=== PATIENT | female | born 1980 | race Caucasian/White ===

== ENCOUNTER 2017-08-29 03:49 | Emergency (ER) | payer OTHER ==
--- NOTE | 2017-08-29 04:08 | PDOC ---
History of Present Illness - General Stated Complaint: PAIN History Source: Patient Exam Limitations: No Limitations - History of Present Illness Travel History: No Initial Comments: 08/29/17 04:18 36-year-old female with a history of first renal colic 2 years ago presents to the emergency department complaining of left-sided flank pain 2 hours. Pain is described as 5/10 dull nonradiating intermittent discomfort. Patient denies nausea/vomiting, fever/chills, chest pain, shortness of breath, abdominal pains , urinary symptoms: Frequency/urgency/hesitancy, hematuria. The pain is exacerbated on touch and alleviated minimally with Advil which the patient took 2 hours ago. Patient states pain is similar to her previous renal colic on the left side. Patient denies any other complaints. LMP: presently Timing/Duration: reports: intermittent Past History - Past Medical History Allergies/Adverse Reactions: Allergies Allergy/AdvReac Type Severity Reaction Status Date / Time No Known Drug Allergies Allergy Verified 08/29/17 04:40 Home Medications: Ambulatory Orders Albuterol Sulfate Inhaler - [Ventolin HFA Inhaler -] 1 - 2 inh PO QID 06/23/15 Montelukast Na [Singulair -] 10 mg PO HS 06/23/15 Budesonide/Formeterol Fumarate [SYMBICORT 160/4.5mcg -] 1 inh PO DAILY 08/29/17 Asthma: Yes Cancer: No Cardiac Disorders: No Diabetes: Yes HTN: Yes Seizures: No Thyroid Disease: No - Immunization History Immunization Up to Date: Yes - Suicide/Smoking/Psychosocial Hx Smoking History: Never smoked Have you smoked in the past 12 months: Yes Hx Alcohol Use: Yes (occasion) Drug/Substance Use Hx: No Substance Use Type: None Hx Substance Use Treatment: No Review of Systems - Review of Systems Able to Perform ROS?: Yes Comments:: 08/29/17 04:19 CONSTITUTIONAL: Absent: fever, chills, diaphoresis, generalized weakness, malaise, loss of appetite HEENT: Absent: rhinorrhea, nasal congestion, throat pain, throat swelling, difficulty swallowing, mouth swelling, ear pain, eye pain, visual Changes CARDIOVASCULAR: Absent: chest pain, loss of consciousness, palpitations, irregular heart rate, peripheral edema RESPIRATORY: Absent: cough, shortness of breath, dyspnea with exertion, orthopnea, wheezing, stridor, hemoptysis GASTROINTESTINAL: Absent: abdominal pain, abdominal distension, nausea, vomiting, diarrhea, constipation, melena, hematochezia GENITOURINARY: +left flank pain Absent: dysuria, frequency, urgency, hesitancy, hematuria,genital pain MUSCULOSKELETAL: Absent: myalgia, arthralgia, joint swelling SKIN: Absent: rash, itching, pallor Is the patient limited Macedonian proficient: No *Physical Exam - Physical Exam Comments: 08/29/17 04:20 GENERAL: Well developed, well nourished. Awake and alert. No acute distress. HEENT: Normocephalic, atraumatic. PERRLA, EOMI. No conjunctival pallor. Sclera are non- icteric. Moist mucous membranes. Oropharynx is clear. NECK: Supple. Full ROM. No JVD. Carotid pulses 2+ and symmetric, without bruits. No thyromegaly. No lymphadenopathy. CARDIOVASCULAR: Regular rate and rhythm. No murmurs, rubs, or gallops. Distal pulses are 2+ and symmetric. PULMONARY: No evidence of respiratory distress. Lungs clear to auscultation bilaterally. No wheezing, rales or rhonchi. ABDOMINAL: Soft. Non-tender. Non-distended. No rebound or guarding. No organomegaly. Normoactive bowel sounds. MUSCULOSKELETAL +Left CVAT Normal range of motion at all joints. No bony deformities or tenderness. EXTREMITIES: No cyanosis. No clubbing. No edema. No calf tenderness. SKIN: Warm and dry. Normal capillary refill. No rashes. No jaundice. NEUROLOGICAL: Alert, awake, appropriate. Cranial nerves 2-12 intact. No deficits to light touch and temperature in face, upper extremities and lower extremities. No motor deficits in the in face, upper extremities and lower extremities. Normoreflexic in the upper and lower extremities. Normal speech. Toes are down- going bilaterally. Gait is normal without ataxia. PSYCHIATRIC: Cooperative. Good eye contact. Appropriate mood and affect. ED Treatment Course - LABORATORY CBC & Chemistry Diagram: 08/29/17 04:10 08/29/17 04:10 - RADIOLOGY Radiograph Interpretation: 08/29/17 06:43 CT renal colic: There is a left thigh nonobstructed sided nonobstructing calyceal renal stone Nephrolithiasis *DC/Admit/Observation/Transfer Diagnosis at time of Disposition: Renal colic on left side - Discharge Dispostion Disposition: HOME Condition at time of disposition: Stable - Referrals Referrals: Artis Andrew [Primary Care Provider] - Delta Barakat MD [Staff Physician] - - Patient Instructions Printed Discharge Instructions: Kidney Stones -- Adult Additional Instructions: Increase fluids Take Tylenol alternating with Motrin as needed for pain Follow-up with the urologist Return back to the emergency department for severe/persistent or worsening symptoms - Post Discharge Activity
[2017-08-29 04:25] LABS: BASO % 0.5 % (0-2.0); EOS % 2.1 % (0-4.5); HEMATOCRIT 39.4 % (32.4-45.2); LYMPH % 22.2 % (8-40); MCH 27.9 pg (25.7-33.7); MCHC 33.1 g/dl (32.0-36.0); MEAN CELL VOLUME 84.4 fl (80-96); MEAN PLT VOLUME 7.5 fl (7.5-11.1); MONO % 6.5 % (3.8-10.2); NEUT % 68.7 % (42.8-82.8); PLATELET COUNT 388 K/MM3 (134-434); RBC 4.67 M/mm3 (3.60-5.2); RDW 14.2 % (11.6-15.6)
[2017-08-29 04:26] LABS: URINE APPEARANCE CLEAR; URINE BILIRUBIN NEGATIVE (NEGATIVE); URINE BLOOD 2+ (NEGATIVE); URINE COLOR STRAW; URINE GLUCOSE (UA) NEGATIVE (NEGATIVE); URINE KETONE NEGATIVE (NEGATIVE); URINE LEUK ESTERASE NEGATIVE (NEGATIVE); URINE NITRITE NEGATIVE (NEGATIVE); URINE PROTEIN NEGATIVE (NEGATIVE); URINE UROBILINOGEN NEGATIVE mg/dL (0.2-1.0)
[2017-08-29 04:33] LABS: HCG,QUALITATIVE URINE NEGATIVE
[2017-08-29 04:43] VITALS: TEMP 98; BMI 30.9
[2017-08-29 04:49] LABS: ALBUMIN 3.8 g/dl (3.4-5.0); ANION GAP 4 (8-16); BILIRUBIN,TOTAL 0.2 mg/dL (0.2-1.0); BLOOD UREA NITROGEN 13 mg/dL (7-18); CHLORIDE 104 mmol/L (98-107); CO2 32 mmol/L (21-32); CREATININE 0.7 mg/dL (0.55-1.02); GLUCOSE,RANDOM 131 mg/dL (74-106); POTASSIUM 3.6 mmol/L (3.5-5.1); SGOT/AST 10 U/L (15-37); SGPT/ALT 16 U/L (12-78); SODIUM 140 mmol/L (136-145); TOT PROT 7.1 g/dl (6.4-8.2)
[2017-08-29 04:50] LABS: EPI CELLS FEW /HPF (FEW); URINE BACTERIA RARE /hpf (NONE SEEN); URINE MUCUS RARE
[2017-08-29 04:50] LABS: ALK PHOS 81 U/L (45-117)
[2017-08-29 07:02] VITALS: BP 117/85; PULSE 80
== END 2017-08-29 07:02 | disposition home or self-care (01) ==
LOC: JER 03:49
DX: N20.0 Calculus of kidney (principal); Z87.442 Personal history of urinary calculi; I10 Essential (primary) hypertension; E11.9 Type 2 diabetes mellitus without complications; J45.909 Unspecified asthma, uncomplicated
CPT/HCPCS: 36415; 74176; 80053; 81003; 81015; 84703; 85025; 99282-25

== ENCOUNTER 2017-12-09 01:29 | Emergency (ER) | payer OTHER ==
[2017-12-09 03:06] VITALS: BMI 40.7
--- NOTE | 2017-12-09 04:55 | PDOC ---
History of Present Illness - History of Present Illness Initial Comments: 37-year-old female with a history of asthma, renal colic, who presents to the emergency department complaining of left flank pain. Patient states that around 12:30 am she began feeling left sided pain. She states that she took a muscle relaxer thinking it was muscular related, however the pain did not let up so she proceeded to the emergency room. She states that she last had a kidney stones a couple of months ago and says that her current pain feels similar. She states that when her pain began it was at a 1000 but it is now at a 2-3/ 10. She also endorses nausea. She denies fever, hematuria. Surgical Hx: Allergies: none 12/09/17 05:33 <Renée Mathew - Last Filed: 12/09/17 06:41> - General History Source: Patient Exam Limitations: No Limitations <Geetha Navarrete - Last Filed: 12/11/17 16:42> - General Chief Complaint: Pain Stated Complaint: PAIN,LT SIDE Time Seen by Provider: 12/09/17 04:55 Past History <Renée Mathew - Last Filed: 12/09/17 06:41> - Past Medical History Asthma: Yes Cancer: No Cardiac Disorders: No Diabetes: Yes HTN: Yes Seizures: No Thyroid Disease: No - Immunization History Immunization Up to Date: Yes - Suicide/Smoking/Psychosocial Hx Smoking History: Never smoked Have you smoked in the past 12 months: No Information on smoking cessation initiated: No Hx Alcohol Use: No Drug/Substance Use Hx: No Substance Use Type: None Hx Substance Use Treatment: No <Geetha Navarrete - Last Filed: 12/11/17 16:42> - Past Medical History Allergies/Adverse Reactions: Allergies Allergy/AdvReac Type Severity Reaction Status Date / Time No Known Drug Allergies Allergy Verified 12/09/17 03:06 Home Medications: Ambulatory Orders Albuterol Sulfate Inhaler - [Ventolin HFA Inhaler -] 1 - 2 inh PO QID 06/23/15 Montelukast Na [Singulair -] 10 mg PO HS 06/23/15 Budesonide/Formeterol Fumarate [SYMBICORT 160/4.5mcg -] 1 inh PO DAILY 08/29/17 Review of Systems - Review of Systems Comments:: GENERAL/CONSTITUTIONAL: No: fever, chills, weakness, loss of appetite. HEAD, EYES, EARS, NOSE AND THROAT: No: change in vision, ear pain, discharge, sore throat, throat swelling. CARDIOVASCULAR: No: chest pain, lightheadedness, palpitations, syncope RESPIRATORY: No: cough, shortness of breath, wheezing, hemoptysis, stridor. GASTROINTESTINAL: +nausea. No vomiting, abdominal cramping, diarrhea, rectal bleeding, constipation. GENITOURINARY: +left flank pain. No: dysuria, hematuria, frequency, urgency. MUSCULOSKELETAL: No: back pain, neck pain, joint pain, muscle swelling or pain SKIN: No: lesions, pallor, rash or easy bruising. NEUROLOGIC: No: headache, vertigo, paresthesias, weakness ENDOCRINE: No: unexplained weight gain or loss HEMATOLOGIC/LYMPHATIC: No: anemia, easy bleeding, swelling nodes <Renée Mathew - Last Filed: 12/09/17 06:41> *Physical Exam - Vital Signs Last Vital Signs Temp Pulse Resp BP Pulse Ox 97.8 F 92 H 18 147/87 98 12/09/17 03:02 12/09/17 03:02 12/09/17 03:02 12/09/17 03:02 12/09/17 03:02 - Physical Exam Comments: GENERAL: The patient is in no acute distress. HEAD: Normal with no signs of trauma. EYES: PERRLA, EOMI, sclera anicteric, conjunctiva clear. ENT: Ears normal, nares patent, oropharynx clear without exudates. Moist mucous membranes. NECK: Normal range of motion, supple without lymphadenopathy, JVD, or masses. LUNGS: Breath sounds equal, clear to auscultation bilaterally. No wheezes, and no crackles. HEART:Regular rate and rhythm, normal S1 and S2 without murmur, rub or gallop. ABDOMEN: Soft, nontender, normoactive bowel sounds. No guarding, no rebound. EXTREMITIES: Normal range of motion, no edema. No clubbing or cyanosis. No erythema, or tenderness. NEUROLOGICAL: Cranial nerves II through XII grossly intact. Normal speech. No focal neurological deficits. MUSCULOSKELETAL: Back nontender to palpation, no CVA tenderness SKIN: Warm, Dry, normal turgor, no rashes or lesions noted. <Renée Mathew - Last Filed: 12/09/17 06:41> - Vital Signs Last Vital Signs Temp Pulse Resp BP Pulse Ox 97.8 F 92 H 18 147/87 98 12/09/17 03:02 12/09/17 03:02 12/09/17 03:02 12/09/17 03:02 12/09/17 03:02 <Geetha Navarrete - Last Filed: 12/11/17 16:42> ED Treatment Course - LABORATORY CBC & Chemistry Diagram: 12/09/17 05:35 12/09/17 05:35 <Renée Mathew - Last Filed: 12/09/17 06:41> - LABORATORY CBC & Chemistry Diagram: 12/09/17 05:35 12/09/17 05:35 <Geetha Navarrete - Last Filed: 12/11/17 16:42> Medical Decision Making - Medical Decision Making 12/11/17 16:37 Ms Navarro is a 37 yo h/o asthma, renal colic not requiring lithotripsy who presents to the ED with reported severe left flank pain which began at midnight. Upon my assessment of this patient, she reports that her pain has improved greatly. She took a muscle relaxant because she thought this might be a muscle strain. Pain feels similar to prior kidney stones No fevers or chills No hematuria, no pyuria Examination: RRR CTA No abd tenderness No CVA tenderness Will do: labs UA Laboratory Tests 12/09/17 12/09/17 12/09/17 05:30 05:35 05:35 WBC 12.7 H BUN 16 Creatinine 0.7 Urine Blood Negative Urine Nitrite Negative Ur Leukocyte Esterase Negative No blood in the urine Slight leukocytosis No renal insufficiency Will do CT as UA is not necessarily convincing for passed kidney stone CT performed Pt requesting to leave the ER Pt given copy of CT Pain controlled Will discharge to home Pt has a Urologist with whom she can follow up Clinical Impression: flank pain, initial presentation <Geetha Navarrete - Last Filed: 12/11/17 16:42> *DC/Admit/Observation/Transfer - Attestations Scribe Attestion: 12/09/17 05:41 Documentation prepared by Renée Mathew, acting as medical videographer for Geetha Navarrete MD. <Renée Mathew - Last Filed: 12/09/17 06:41> - Discharge Dispostion Decision to Admit order: No <Geetha Navarrete - Last Filed: 12/11/17 16:42> Diagnosis at time of Disposition: Renal colic on left side - Discharge Dispostion Disposition: HOME Condition at time of disposition: Stable - Referrals Referrals: Artis Andrew [Primary Care Provider] - - Patient Instructions Printed Discharge Instructions: Kidney Stones -- Adult Additional Instructions: please follow up with your Urologist Return to the ER for any other concerns or complaints - Post Discharge Activity Forms/Work/School Notes: Back to Work
[2017-12-09] MEDS ORDERED: SODIUM CHLORIDE 1,000 ML IV STA (05:13)
[2017-12-09 05:42] LABS: URINE APPEARANCE CLOUDY; URINE BILIRUBIN NEGATIVE (<2.0 mg/dL); URINE COLOR YELLOW; URINE GLUCOSE (UA) NEGATIVE (NEGATIVE); URINE KETONE NEGATIVE (NEGATIVE); URINE LEUK ESTERASE NEGATIVE (NEGATIVE); URINE NITRITE NEGATIVE (NEGATIVE); URINE PROTEIN NEGATIVE (NEGATIVE)
[2017-12-09 06:19] LABS: BASO % 0.8 % (0-2.0); EOS % 0.9 % (0-4.5); HEMOGLOBIN 12.8 GM/dL (10.7-15.3); LYMPH % 18.2 % (8-40); MCH 28.4 pg (25.7-33.7); MCHC 33.6 g/dl (32.0-36.0); MEAN CELL VOLUME 84.6 fl (80-96); MEAN PLT VOLUME 7.2 fl (7.5-11.1); MONO % 6.4 % (3.8-10.2); NEUT % 73.7 % (42.8-82.8); PLATELET COUNT 392 K/MM3 (134-434); RBC 4.49 M/mm3 (3.60-5.2); RDW 14.6 % (11.6-15.6); WHITE BLOOD COUNT 12.7 K/mm3 (4.0-10.0)
[2017-12-09 06:40] LABS: ANION GAP 5 (8-16); BLOOD UREA NITROGEN 16 mg/dL (7-18); CHLORIDE 105 mmol/L (98-107); CO2 29 mmol/L (21-32); CREATININE 0.7 mg/dL (0.55-1.02); GLUCOSE,RANDOM 109 mg/dL (74-106); POTASSIUM 4.1 mmol/L (3.5-5.1); SODIUM 139 mmol/L (136-145)
[2017-12-09 08:06] VITALS: BP 114/78; PULSE 72; TEMP 98.1
== END 2017-12-09 08:05 | disposition home or self-care (01) ==
LOC: JER 01:29
DX: N23 Unspecified renal colic (principal); J45.909 Unspecified asthma, uncomplicated; E11.9 Type 2 diabetes mellitus without complications; I10 Essential (primary) hypertension
CPT/HCPCS: 36415; 74176; 80048; 81003; 84703; 85025; 87086; 99283-25

== ENCOUNTER 2018-11-11 05:30 | Day surgery (SDC) | payer OTHER ==
[2018-11-02 17:42] VITALS: BMI 45.1
[2018-11-11] MEDS ORDERED: fentaNYL CITRATE 250 MCG/5 ML VIAL ONE (08:05)
[2018-11-11] MEDS ORDERED: PROPOFOL 20 ML ONE ×3 (08:05→08:06)
[2018-11-11] MEDS ORDERED: LIDOCAINE HCL/PF 2% SDV 5ML VIAL ONE (08:05)
[2018-11-11] MEDS ORDERED: MIDAZOLAM HCL 2 MG/2 ML SINGLE DOSE VIAL ONE (08:06)
[2018-11-11] MEDS ORDERED: ROCURONIUM BROMIDE 50 MG/5 ML VIAL ONE ×2 (08:06→09:02)
--- NOTE | 2018-11-11 08:06 | HP ---
History & Physical Update - History History: No Change - Physical Physical: No Change - Assessment Assessment: No Change - Plan Plan: No Change (no change since visit with Dr Hussein on 11/08/18)
[2018-11-11] MEDS ORDERED: DEXAMETHASONE SOD PHOSPHATE 4 MG/1 ML VIAL ONE (08:54)
[2018-11-11] MEDS ORDERED: BUPIVACAINE HCL/PF 0.5% (5MG/ML) 10 ML VIAL IJ ONE ×2 (09:15)
[2018-11-11] MEDS ORDERED: GLYCOPYRROLATE 0.2 MG/1 ML VIAL ONE (09:27)
[2018-11-11] MEDS ORDERED: NEOSTIGMINE METHYLSULFATE 0.5 MG/ML - 10 ML MDV ONE (09:27)
[2018-11-11] MEDS ORDERED: ONDANSETRON 4 MG/2 ML VIAL IVPUSH PRN (10:25)
[2018-11-11] MEDS ORDERED: oxyCODONE HCL 5 MG TABLET PO PRN (10:25)
[2018-11-11] MEDS ORDERED: IBUPROFEN 800 MG/8 ML IJ IVPB PRN (10:25)
[2018-11-11] MEDS ORDERED: ALBUTEROL SO4 2.5/IPRATROPIUM 0.5 INH SOL 3 ML VIAL.NEB. NEB ONE (10:26)
[2018-11-11] MEDS ORDERED: LACTATED RINGERS SOLUTION 1,000 ML IV SCH (10:30)
--- NOTE | 2018-11-11 10:45 | OP ---
Operative Note - Note: Operative Date: 11/11/18 Pre-Operative Diagnosis: right paratubal mass Operation: laparoscopic paratubal cystectomy x2, Right ovarian mass excision, lysis of adhesions Post-Operative Diagnosis: Same as Pre-op Surgeon: Caprice Hussein Flight Instructor: Marleni Sanchez Anesthesiologist/MAINTENANCE PLUMBER: Cami Dempsey Anesthesia: General Specimens Removed: paratubal cyst x 2, right ovarian mass excision. Estimated Blood Loss (mls): 150 Drains, Volume Out (mls): 400 (urine) Fluid Volume Replaced (mls): 800 Operative Report Dictated: Yes
--- NOTE | 2018-11-11 10:47 | SURG ---
Surgery Upper Tier Note Upper Tier: Marleni Sanchez PA-C Date of Service: 11/11/18 Diagnosis: right paratubal mass (cyst0 Procedure: laparoscopic paratubal cystectomy x2, Right ovarian mass excision, lysis of adhesions I was present for the entirety of the operative procedure. For further detail, please refer to operative report. Visit type - Case Type Case Type: Scheduled - Emergency Emergency Visit: No - New patient This patient is new to me today: Yes Date on this admission: 11/11/18
--- NOTE | 2018-11-11 10:58 | OP ---
DATE OF OPERATION: 11/11/2018 PREOPERATIVE DIAGNOSIS: Right paraovarian cyst. OPERATION: Laparoscopic right paraovarian cystectomy and removal of right ovarian mass as well as another paraovarian cystectomy, and lysis of adhesions or enterolysis. POSTOPERATIVE DIAGNOSES: Omental bowel adhesions, right ovarian mass, and right paraovarian cysts seen. SURGEON: Caprice Hussein MD IRRIGATION FOREMAN: DANIELE Yepez ANESTHESIA: General. ANESTHESIOLOGIST: Cami Dempsey MD PROCEDURE: Patient was taken to the operating room, placed in dorsal lithotomy position, prepped and draped in the usual sterile fashion. A timeout was performed in accordance with hospital regulation. Kincaid catheter was then inserted into the bladder. Attention was then drawn to the umbilicus where a 5-mm umbilical incision was made. Veress needle was inserted into the cavity. Laparoscope and camera attached. Visualization revealed about a 12-cm paraovarian cyst and also a right ovarian mass was also seen. Left ovary and tube were noted to be normal, and the left ovary had a small 2-cm ovarian cyst. Two trocars were placed in the left and the right side under direct visualization. The LigaSure was attached. Also, needle was then inserted into the cyst, and approximately 300 mL of cystic fluid was removed and sent to Cytology. After cystic fluid was removed, Endoshears were then used to open the paraovarian cyst. A paraovarian cystectomy was then performed, and cyst wall was removed. Also, upon entry of the paraovarian cyst, some ovarian mass was seen and was removed using Endoshears and an Endobag and then submitted to Pathology. Another cyst was sent in the right paraovarian area and was removed and submitted. Hemostasis was achieved using LigaSure as well as FloSeal. Irrigation and suction performed. After hemostasis had been achieved, attention was then drawn to the omentum where omental adhesions were then lysed. Some dense adhesions were taken down. All instruments were then removed. A Duane-Mak was then used to close the fascia of the abdomen on the left side due to 11-mm port was placed for the Endobag. After fascia had been closed, the skin was then closed using 4-0 Biosyn suture in a subcuticular fashion. Patient tolerated the procedure well. ESTIMATED BLOOD LOSS: About 150 mL. Waleska TEE/[id number]
[2018-11-11 15:33] VITALS: BP 127/69; PULSE 89; TEMP 98.1
--- NOTE | 2018-11-15 12:45 | PATH ---
Surgical Pathology Report Patient Name: BRITTANY ALFONSO [facility]. Rec. #: [id number] /Age/Gender: 1980 (Age: 38) / F Account: [id number] Location: AMBULATORY SURG Taken: 11/11/2018 Received: 11/11/2018 Reported: 11/15/2018 Physicians: Caprice Hussein M.D. 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 Chema Solitario M.D., 11/11/2018 Final Diagnosis A. OVARIAN TUMOR, EXCISION: SEROUS ADENOFIBROMA. FEW FRAGMENTS OF MUCOSAL TISSUE LINED BY CILIATED COLUMNAR CELLS SURROUNDED BY SMOOTH MUSCLE, CONSISTENT WITH PORTION OF FALLOPIAN TUBE MUCOSA. B. RIGHT PARATUBAL CYST, RESECTION: CONSISTENT WITH PARATUBAL CYST. Electronically Signed Cristina Solitario M.D. Gross Description A. Received fresh labeled "ovarian tumor," is a 4.0 x 3.5 x 0.3 cm portion of a disrupted cyst wall with focal attached blood clot. There are focal papillary excrescences attached to both surfaces of the cyst wall. A u.s. representative portion is submitted for frozen section. The remainder of the specimen is serially sectioned and the specimen is entirely submitted in 6 cassettes as follows: 1-frozen section residue; 2-7-[id number] of specimen. B. Received in formalin labeled "right paratubal cyst," is a 4.5 x 1.7 x 0.9 cm focally disrupted cystic structure. The outer surface is pretty-carrizales and smooth. The inner lining is red-brown. No excrescences are identified. The specimen is serially sectioned and entirely submitted in 3 cassettes. DL/11/11/2018 saudi/11/11/2018
== END 2018-11-11 16:10 | disposition home or self-care (01) ==
LOC: JASUSAT 05:30
PROVIDERS: ATTEND Obstetrics & Gynecology
PROC: 0UB24ZZ Excision of Bilateral Ovaries, Percutaneous Endoscopic Approach (ICD-10-PCS; principal; 2018-11-11 08:00)
DX: D27.0 Benign neoplasm of right ovary (principal); N83.292 Other ovarian cyst, left side; K66.0 Peritoneal adhesions (postprocedural) (postinfection)
CPT/HCPCS: 36415; 82962; 84703; 86850; 86900; 86901; 88108; 88304-TC; 88305-TC; 88307-TC; 88331-TC; 94760

== ENCOUNTER → 2021-10-17 | Day surgery (SDC) | payer OTHER | END | disposition home or self-care (01) | LOC: JRADIR 09:58 | PROVIDERS: ATTEND Internal Medicine Endocrinology, Diabetes & Metabolism | PROC: 0G9G3ZX Drainage of Left Thyroid Gland Lobe, Percutaneous Approach, Diagnostic (ICD-10-PCS; principal; 2021-10-17) | DX: E04.1 Nontoxic single thyroid nodule (principal) | CPT/HCPCS: 10005; 76942; 88173; 88305-TC ==

== ENCOUNTER → 2023-09-29 | Day surgery (SDC) | payer OTHER | END | disposition home or self-care (01) | LOC: JRADIR 09:38 | PROVIDERS: ATTEND Internal Medicine Endocrinology, Diabetes & Metabolism | PROC: 0G9G3ZX Drainage of Left Thyroid Gland Lobe, Percutaneous Approach, Diagnostic (ICD-10-PCS; principal; 2023-09-29) | DX: E04.1 Nontoxic single thyroid nodule (principal) | CPT/HCPCS: 10005; 76942; 88173; 88305-TC ==